=== PATIENT | male | born 1975 | race American Indian/Alaskan Native ===

== ENCOUNTER 2017-12-01 14:30 | Inpatient (IN) | payer BC, OTHER ==
[2017-12-01] MEDS ORDERED: Sodium Chloride 0.9% 10 ML Syringe FLUSH PRN (15:14)
[2017-12-01] MEDS ORDERED: Sodium Chloride 0.9% 2.5 ML Syringe FLUSH PRN (15:14)
--- NOTE | 2017-12-01 15:25 | EDM.PDOC ---
ED HPI GENERAL MEDICAL PROBLEM - General Chief Complaint: Abdominal Pain Stated Complaint: ABD PAIN Time Seen by Provider: 12/01/17 15:10 Source of Information: Reports: Patient History Limitations: Reports: No Limitations - History of Present Illness INITIAL COMMENTS - FREE TEXT/NARRATIVE: HISTORY AND PHYSICAL: []42-year-old male presents with abdominal pain just above his umbilicus to right lower quadrant History of Present Illness: []As been sick since Thursday this is the fifth day he has had diarrhea he had 2 bowel movements yesterday with diarrhea no bowel movement today 2Weeks ago due to patient was diagnosed with diabetes he has been on metformin for 2 weeks Review of Systems: As per history of present illness and below otherwise all systems reviewed and negative. Past medical history: As per history of present illness and as reviewed below otherwise noncontributory. Surgical history: As per history of present illness and as reviewed below otherwise noncontributory. Social history: No reported history of drug or alcohol abuse. Family history: As per history of present illness and as reviewed below otherwise noncontributory. Physical exam: Learning oriented male answering questions appropriately in full sentences without any shortness of breath he looks to be nontoxic. In is warm and dry HEENT: Atraumatic, normocehpalic, pupils reactive, negative for conjunctival pallor or scleral icterus, mucous membranes moist, throat clear, neck supple, nontender, trachea midline. PERRLA Lungs: Clear to auscultation, breath sounds equal bilaterally, chest non tender. Heart: S1S2, regular, negative for clicks, rubs, or JVD. Abdomen: Soft, nondistended, tender above the umbilicus there is a hernia and old scars are present. No rebound no guarding Negative for masses or hepatossplenmegaly. Negative for costovertebral tenderness. Pelvis: Stable nontender. Genitourinary: Deferred. Rectal: Deferred Extremities: Atraumatic, negative for cords or calf pain. Neurovascular unremarkable. Neuro: Awake, alert, oriented. Cranial nerves II through XII unremarkable. Cerebellum unremarkable. Motor and sensory unremarkable throughout. Exam nonfocal. Dr. Gregorio Alonso surgeon hydro excavation operator has been notified of the patient and he is here to examine him 17:55. Diagnostics: []CBC CMP amylase lipase abdomen pelvis CT Therapeutics: []Normal saline Impression: []Appendicitis Plan: []Refer to general surgery Definitive disposition and diagnosis as appropriate pending reevaluation and review of above. Onset: Gradual Duration: Day(s): (3) Location: Reports: Abdomen abdomen, back, R groin, Pain Score (Numeric/FACES): 8 - Related Data Allergies Allergy/AdvReac Type Severity Reaction Status Date / Time No Known Allergies Allergy Verified 12/01/17 14:54 Home Meds: Home Meds Ergocalciferol (Vitamin D2) [Vitamin D2] 1 tab PO WEEKLY 12/01/17 [History] Lisinopril 20 mg PO DAILY 12/01/17 [History] metFORMIN HCl [Metformin HCl] 1 tab PO BID 12/01/17 [History] Past Medical History Cardiovascular History: Reports: Hypertension Endocrine/Metabolic History: Reports: Diabetes, Type II - Past Surgical History GI Surgical History: Reports: Cholecystectomy Social & Family History - Family History Family Medical History: Noncontributory - Tobacco Use Smoking Status *Q: Current Every Day Smoker Years of Tobacco use: 5 Packs/Tins Daily: 0.1 - Recreational Drug Use Recreational Drug Use: No ED ROS GENERAL - Review of Systems Review Of Systems: ROS reveals no pertinent complaints other than HPI. ED EXAM, GI/ABD - Physical Exam Exam: See Below (See dictation) Course - Vital Signs Last Recorded V/S: Last Vital Signs Temp 37.0 C 12/03/17 08:00 Pulse 59 L 12/03/17 08:00 Resp 20 12/03/17 08:00 BP 126/65 12/03/17 08:10 Pulse Ox 93 L 12/03/17 08:00 - Orders/Labs/Meds Labs: Laboratory Tests 12/01/17 12/01/17 12/01/17 Range/Units 15:25 15:25 15:25 WBC 9.54 (4.0-11.0) K/uL RBC 5.38 (4.50-5.90) M/uL Hgb 15.4 (13.0-17.0) g/dL Hct 43.1 (38.0-50.0) % MCV 80.1 (80.0-98.0) fL MCH 28.6 (27.0-32.0) pg MCHC 35.7 (31.0-37.0) g/dL RDW Std Deviation 37.8 (28.0-62.0) fl RDW Coeff of Garry 13 (11.0-15.0) % Plt Count 170 (150-400) K/uL MPV 11.40 (7.40-12.00) fL Neut % (Auto) 78.5 (48.0-80.0) % Lymph % (Auto) 13.3 L (16.0-40.0) % Towns % (Auto) 7.2 (0.0-15.0) % Eos % (Auto) 0.8 (0.0-7.0) % Baso % (Auto) 0.2 (0.0-1.5) % Neut # (Auto) 7.5 H (1.4-5.7) K/uL Lymph # (Auto) 1.3 (0.6-2.4) K/uL [place] # (Auto) 0.7 (0.0-0.8) K/uL Eos # (Auto) 0.1 (0.0-0.7) K/uL Baso # (Auto) 0.0 (0.0-0.1) K/uL Nucleated RBC % 0.0 /100WBC Nucleated RBCs # 0 K/uL INR 1.00 Sodium 140 (136-148) mmol/L Potassium 3.9 (3.5-5.1) mmol/L Chloride 105 (98-107) mmol/L Carbon Dioxide 27.0 (21.0-32.0) mmol/L BUN 17 (7.0-18.0) mg/dL Creatinine 1.0 (0.8-1.3) mg/dL Est Cr Clr Drug Dosing 114.17 mL/min Estimated GFR (MDRD) > 60.0 ml/min Glucose 179 H (74-106) mg/dL Calcium 8.8 (8.5-10.1) mg/dL Total Bilirubin 0.9 (0.2-1.0) mg/dL AST 18 (15-37) IU/L ALT 47 (14-63) IU/L Alkaline Phosphatase 106 (46-116) U/L Troponin I < 0.050 (0.000-0.056) ng/mL B-Natriuretic Peptide (<100) PG/ML Total Protein 6.9 (6.4-8.2) g/dL Albumin 3.8 (3.4-5.0) g/dL Globulin 3.1 (2.0-3.5) g/dL Albumin/Globulin Ratio 1.2 L (1.3-2.8) Amylase 23 L (25-115) U/L Lipase 93 (73-393) U/L Urine Color Urine Appearance Urine pH (5.0-8.0) Ur Specific [place] (1.001-1.035) Urine Protein (NEGATIVE) mg/dL Urine Glucose (UA) (NEGATIVE) mg/dL Urine Ketones (NEGATIVE) mg/dL Urine Occult Blood (NEGATIVE) Urine Nitrite (NEGATIVE) Urine Bilirubin (NEGATIVE) Urine Urobilinogen (<2.0) EU/dL Ur Leukocyte Esterase (NEGATIVE) Urine RBC (0-2/HPF) Urine WBC (0-5/HPF) Ur Epithelial Cells (NONE-FEW) Urine Bacteria (NEGATIVE) H. pylori IgG Antibody (NEG) 12/01/17 12/01/17 12/01/17 Range/Units 15:25 15:25 16:54 WBC (4.0-11.0) K/uL RBC (4.50-5.90) M/uL Hgb (13.0-17.0) g/dL Hct (38.0-50.0) % MCV (80.0-98.0) fL MCH (27.0-32.0) pg MCHC (31.0-37.0) g/dL RDW Std Deviation (28.0-62.0) fl RDW Coeff of Garry (11.0-15.0) % Plt Count (150-400) K/uL MPV (7.40-12.00) fL Neut % (Auto) (48.0-80.0) % Lymph % (Auto) (16.0-40.0) % Towns % (Auto) (0.0-15.0) % Eos % (Auto) (0.0-7.0) % Baso % (Auto) (0.0-1.5) % Neut # (Auto) (1.4-5.7) K/uL Lymph # (Auto) (0.6-2.4) K/uL [place] # (Auto) (0.0-0.8) K/uL Eos # (Auto) (0.0-0.7) K/uL Baso # (Auto) (0.0-0.1) K/uL Nucleated RBC % /100WBC Nucleated RBCs # K/uL INR Sodium (136-148) mmol/L Potassium (3.5-5.1) mmol/L Chloride (98-107) mmol/L Carbon Dioxide (21.0-32.0) mmol/L BUN (7.0-18.0) mg/dL Creatinine (0.8-1.3) mg/dL Est Cr Clr Drug Dosing mL/min Estimated GFR (MDRD) ml/min Glucose (74-106) mg/dL Calcium (8.5-10.1) mg/dL Total Bilirubin (0.2-1.0) mg/dL AST (15-37) IU/L ALT (14-63) IU/L Alkaline Phosphatase (46-116) U/L Troponin I (0.000-0.056) ng/mL B-Natriuretic Peptide 18 (<100) PG/ML Total Protein (6.4-8.2) g/dL Albumin (3.4-5.0) g/dL Globulin (2.0-3.5) g/dL Albumin/Globulin Ratio (1.3-2.8) Amylase (25-115) U/L Lipase (73-393) U/L Urine Color YELLOW Urine Appearance CLEAR Urine pH 6.0 (5.0-8.0) Ur Specific [place] 1.015 (1.001-1.035) Urine Protein NEGATIVE (NEGATIVE) mg/dL Urine Glucose (UA) 250 H (NEGATIVE) mg/dL Urine Ketones NEGATIVE (NEGATIVE) mg/dL Urine Occult Blood NEGATIVE (NEGATIVE) Urine Nitrite NEGATIVE (NEGATIVE) Urine Bilirubin NEGATIVE (NEGATIVE) Urine Urobilinogen 0.2 (<2.0) EU/dL Ur Leukocyte Esterase NEGATIVE (NEGATIVE) Urine RBC 0-1 (0-2/HPF) Urine WBC 0-1 (0-5/HPF) Ur Epithelial Cells MODERATE (NONE-FEW) Urine Bacteria RARE (NEGATIVE) H. pylori IgG Antibody NEGATIVE (NEG) Meds: Medications Discontinued Medications Generic Name Dose Route Start Last Admin Trade Name Freq PRN Reason Stop Dose Admin Acetaminophen 325 mg 12/01/17 20:48 Tylenol PO Q4H PRN Fever Greater Than 101 Hydrocodone Bitart/Acetaminophen 1 - 2 tab 12/01/17 20:48 12/03/17 08:38 [place] 325-5 Mg PO 2 tab Q4H PRN Administration Pain (moderate 4-6) Bupivacaine HCl Confirm 12/01/17 18:17 Sensorcaine-Mpf 0.5% Administered 12/01/17 18:18 Dose 20 ml .ROUTE .STK-MED ONE Cefazolin Sodium Confirm 12/01/17 18:17 Ancef Administered 12/01/17 18:18 Dose 1 gm .ROUTE .STK-MED ONE Fentanyl Confirm 12/01/17 18:40 Sublimaze Administered 12/01/17 18:41 Dose 250 mcg .ROUTE .STK-MED ONE Fentanyl 50 mcg 12/01/17 19:57 Sublimaze IVPUSH .Q5MIN PRN Pain Glycopyrrolate Confirm 12/01/17 20:18 Robinul Administered 12/01/17 20:19 Dose 0.4 mg .ROUTE .STK-MED ONE Hydromorphone HCl Confirm 12/01/17 19:35 Dilaudid Administered 12/01/17 19:36 Dose 2 mg .ROUTE .STK-MED ONE Cefoxitin Sodium 2 gm/ Premix 50 mls @ 100 mls/hr 12/01/17 18:11 12/01/17 18: 21 IV 12/01/17 18:40 100 mls/hr ONETIME ONE Administration Lactated Ringer's 1,000 mls @ 150 mls/hr 12/01/17 18:15 12/01/17 18:20 Ringers, Lactated IV 150 mls/hr ASDIRECTED LAKISHA Administration Acetaminophen Confirm 12/01/17 18:44 Ofirmev Administered 12/01/17 18:45 Dose 100 mls @ as directed IV .STK-MED ONE Lactated Ringer's 1,000 mls @ 150 mls/hr 12/01/17 21:00 12/02/17 06:58 Ringers, Lactated IV 150 mls/hr ASDIRECTED LAKISHA Administration Cefoxitin Sodium 1 gm/ Premix 50 mls @ 100 mls/hr 12/02/17 00:01 12/03/17 06: 19 IV 12/03/17 18:30 100 mls/hr Q6H LAKISHA Administration Insulin Aspart 0 unit 12/02/17 22:46 12/03/17 07:39 Novolog SUBCUT Not Given [facility] Protocol Iopamidol 100 ml 12/01/17 17:46 12/01/17 17:47 Isovue Multipack-370 (76%) IVPUSH 12/01/17 17:47 100 ml ONETIME STA Administration Ketorolac Tromethamine Confirm 12/01/17 20:16 Toradol Administered 12/01/17 20:17 Dose 30 mg .ROUTE .STK-MED ONE Lidocaine Confirm 12/01/17 18:39 Xylocaine-Mpf 2% Administered 12/01/17 18:40 Dose 5 ml .ROUTE .STK-MED ONE Lisinopril 20 mg 12/02/17 09:00 12/03/17 08:10 Prinivil PO 20 mg DAILY LAKISHA Administration Metformin HCl 850 mg 12/02/17 08:00 12/02/17 09:31 Glucophage PO 850 mg BIDMEALS LAKISHA Administration Metformin HCl 850 mg 12/03/17 08:00 12/03/17 08:09 Glucophage PO 850 mg BIDMEALS LAKISHA Administration Midazolam HCl Confirm 12/01/17 18:40 Versed 1 Mg/Ml Administered 12/01/17 18:41 Dose 2 mg .ROUTE .STK-MED ONE Morphine Sulfate 2 mg 12/01/17 16:09 12/01/17 16:21 Morphine IVPUSH 12/01/17 16:10 2 mg ONETIME ONE Administration Morphine Sulfate 1 - 5 mg 12/01/17 20:48 12/02/17 19:57 Morphine IVPUSH 3 mg ASDIRECTED PRN Administration Pain (severe 7-10) Neostigmine Methylsulfate Confirm 12/01/17 20:18 Neostigmine Administered 12/01/17 20:19 Dose 5 mg .ROUTE .STK-MED ONE Ondansetron HCl 4 mg 12/01/17 16:09 12/01/17 16:19 Zofran IVPUSH 12/01/17 16:10 4 mg ONETIME ONE Administration Ondansetron HCl Confirm 12/01/17 18:39 Zofran Administered 12/01/17 18:40 Dose 4 mg .ROUTE .STK-MED ONE Ondansetron HCl 4 mg 12/01/17 20:48 Zofran IVPUSH Q6H PRN Nausea/Vomiting Propofol Confirm 12/01/17 18:40 Diprivan 20 Ml Administered 12/01/17 18:41 Dose 200 mg .ROUTE .STK-MED ONE Rocuronium [place] Confirm 12/01/17 18:39 Zemuron Administered 12/01/17 18:40 Dose 100 mg .ROUTE .STK-MED ONE Sodium Chloride 10 ml 12/01/17 15:14 12/01/17 16:20 Saline Flush FLUSH 10 ml ASDIRECTED PRN Administration Keep Vein Open Sodium Chloride 2.5 ml 12/01/17 15:14 12/01/17 16:20 Saline Flush FLUSH 2.5 ml ASDIRECTED PRN Administration Keep Vein Open Departure - Departure Time of Disposition: 19:00 Disposition: Admitted As Inpatient 68 Condition: Good Clinical Impression: Appendicitis Qualifiers: Appendicitis type: acute appendicitis Acute appendicitis type: unspecified acute appendicitis type Qualified Code(s): K35.80 - Unspecified acute appendicitis - Discharge Information
[2017-12-01 16:06] LABS: CHLORIDE,CL 105 mmol/L (98-107); SODIUM,NA 140 mmol/L (136-148)
[2017-12-01] MEDS ORDERED: Morphine 2 MG/ML Syringe IVPUSH ONE (16:09)
[2017-12-01] MEDS ORDERED: Ondansetron 4 MG/2 ML SDV IVPUSH ONE (16:09)
[2017-12-01] MEDS ORDERED: Iopamidol 755 MG/ML 500 ML Multipack Bottle IVPUSH STA (17:46)
[2017-12-01] MEDS ORDERED: cefOXitin 2 GM in Premix Bag 1 BAG IV ONE (18:11)
[2017-12-01] MEDS ORDERED: Lactated Ringers 1,000 ML IV SCH (18:15)
[2017-12-01] MEDS ORDERED: ceFAZolin 1 GM Vial ONE (18:17)
[2017-12-01] MEDS ORDERED: Bupivacaine 0.5% 10 ML SDV ONE (18:17)
--- NOTE | 2017-12-01 18:22 | PCM.HP ---
H&P History of Present Illness - General Date of Service: 12/01/17 Admit Problem/Dx: Abdominal pain. Source of Information: Patient, Family History Limitations: Reports: No Limitations - History of Present Illness Initial Comments - Free Text/Narative: Patient is a 42-year-old gentleman who developed abdominal pain this past . The pain is always been in the lower abdomen and to the right side. He did not seek medical attention until today. He says the pain has gotten progressively worse. He denies any nausea, vomiting, fever or chills. He did have a little bit to drink at noon but has basically had nothing to eat. Symptom Onset Date: 11/26/17 Duration of Symptoms: Reports: Day(s):, Getting Worse, Heavy Location: Reports: Abdomen Quality: Reports: Ache, Pressure Improves with: Reports: Rest Worsens with: Reports: Movement (Patient notes pain with ambulation. He also noted increased pain on the ride up if he hit a bump in the road.) Context: Reports: Sick Contact Associated Symptoms: Reports: Loss of Appetite abdomen, back, R groin, Pain Score (Numeric/FACES): 8 - Related Data Allergies/Adverse Reactions: Allergies Allergy/AdvReac Type Severity Reaction Status Date / Time No Known Allergies Allergy Verified 12/01/17 14:54 Home Medications: Home Meds Ergocalciferol (Vitamin D2) [Vitamin D2] 1 tab PO WEEKLY 12/01/17 [History] Lisinopril 20 mg PO DAILY 12/01/17 [History] metFORMIN HCl [Metformin HCl] 1 tab PO BID 12/01/17 [History] Past Medical History Cardiovascular History: Reports: Hypertension Endocrine/Metabolic History: Reports: Diabetes, Type II - Past Surgical History GI Surgical History: Reports: Cholecystectomy Social & Family History - Family History Family Medical History: Noncontributory - Tobacco Use Smoking Status *Q: Current Every Day Smoker Years of Tobacco use: 5 Packs/Tins Daily: 0.1 - Recreational Drug Use Recreational Drug Use: No H&P Review of Systems - Review of Systems: Review Of Systems: See Below General: Reports: Fatigue. Denies: Fever, Chills, Weight Loss HEENT: Reports: No Symptoms Pulmonary: Denies: Shortness of Breath, Wheezing Cardiovascular: Denies: Chest Pain, Palpitations Gastrointestinal: Reports: Abdominal Pain, Anorexia, Diarrhea (Recently started on metformin for diabetes.), Decreased Appetite, Flatus, Nausea. Denies: Constipation, Distension, Vomiting Genitourinary: Denies: Dysuria, Frequency, Burning Musculoskeletal: Reports: No Symptoms Skin: Reports: No Symptoms Psychiatric: Denies: Confusion, Depression, Mood Lability, Anxiety Neurological: Reports: No Symptoms Hematologic/Lymphatic: Reports: No Symptoms Immunologic: Reports: No Symptoms Exam - Exam Exam: See Below - Vital Signs Vital Signs: Last Vital Signs Temp 97.5 F 12/01/17 14:51 Pulse 67 12/01/17 14:51 Resp 18 12/01/17 14:51 BP 155/74 H 12/01/17 14:51 Pulse Ox 97 12/01/17 14:51 Weight: 280 lb - Exam General: Alert, Oriented, Moderate Distress HEENT: Conjunctiva Clear, EACs Clear, Nares Patent, Pupils Equal, Pupils Reactive. No: Scleral Icterus Neck: Supple, Trachea Midline Lungs: Clear to Auscultation, Normal Respiratory Effort Cardiovascular: Regular Rate, Regular Rhythm, Normal S1, Normal S2. No: Tachycardia GI/Abdominal Exam: Normal Bowel Sounds, Soft, Pelvis Stable, Guarding, Rebound, Tender, Hernia (Midline incision with hernias on both sides. This is an upper midline incision.). No: No Distention, No Mass, Distended, Rigid (Male) Exam: No Hernia Rectal (Males) Exam: Deferred Back Exam: Normal Inspection Extremities: Normal Inspection, Normal Range of Motion, No Pedal Edema. No: Edmund's Sign Peripheral Pulses: 4+: Posterior Tibial (L), Posterior Tibial (R), Dorsalis Pedis (L), Dorsalis Pedis (R) Skin: Warm, Dry, Intact Neurological: Cranial Nerves Intact Neuro Extensive - Mental Status: Alert, Oriented x3, Normal Mood/Affect Psychiatric: Alert, Normal Affect, Normal Mood - Patient Data Lab Results Last 24 hrs: Laboratory Results - last 24 hr 12/01/17 12/01/17 12/01/17 Range/Units 15:25 15:25 15:25 WBC 9.54 (4.0-11.0) K/uL RBC 5.38 (4.50-5.90) M/uL Hgb 15.4 (13.0-17.0) g/dL Hct 43.1 (38.0-50.0) % MCV 80.1 (80.0-98.0) fL MCH 28.6 (27.0-32.0) pg MCHC 35.7 (31.0-37.0) g/dL RDW Std Deviation 37.8 (28.0-62.0) fl RDW Coeff of Garry 13 (11.0-15.0) % Plt Count 170 (150-400) K/uL MPV 11.40 (7.40-12.00) fL Neut % (Auto) 78.5 (48.0-80.0) % Lymph % (Auto) 13.3 L (16.0-40.0) % [place] % (Auto) 7.2 (0.0-15.0) % Eos % (Auto) 0.8 (0.0-7.0) % Baso % (Auto) 0.2 (0.0-1.5) % Neut # (Auto) 7.5 H (1.4-5.7) K/uL Lymph # (Auto) 1.3 (0.6-2.4) K/uL [place] # (Auto) 0.7 (0.0-0.8) K/uL Eos # (Auto) 0.1 (0.0-0.7) K/uL Baso # (Auto) 0.0 (0.0-0.1) K/uL Nucleated RBC % 0.0 /100WBC Nucleated RBCs # 0 K/uL INR 1.00 Sodium 140 (136-148) mmol/L Potassium 3.9 (3.5-5.1) mmol/L Chloride 105 (98-107) mmol/L Carbon Dioxide 27.0 (21.0-32.0) mmol/L BUN 17 (7.0-18.0) mg/dL Creatinine 1.0 (0.8-1.3) mg/dL Est Cr Clr Drug Dosing 114.17 mL/min Estimated GFR (MDRD) > 60.0 ml/min Glucose 179 H (74-106) mg/dL Calcium 8.8 (8.5-10.1) mg/dL Total Bilirubin 0.9 (0.2-1.0) mg/dL AST 18 (15-37) IU/L ALT 47 (14-63) IU/L Alkaline Phosphatase 106 (46-116) U/L Troponin I < 0.050 (0.000-0.056) ng/mL B-Natriuretic Peptide (<100) PG/ML Total Protein 6.9 (6.4-8.2) g/dL Albumin 3.8 (3.4-5.0) g/dL Globulin 3.1 (2.0-3.5) g/dL Albumin/Globulin Ratio 1.2 L (1.3-2.8) Amylase 23 L (25-115) U/L Lipase 93 (73-393) U/L Urine Color Urine Appearance Urine pH (5.0-8.0) Ur Specific [place] (1.001-1.035) Urine Protein (NEGATIVE) mg/dL Urine Glucose (UA) (NEGATIVE) mg/dL Urine Ketones (NEGATIVE) mg/dL Urine Occult Blood (NEGATIVE) Urine Nitrite (NEGATIVE) Urine Bilirubin (NEGATIVE) Urine Urobilinogen (<2.0) EU/dL Ur Leukocyte Esterase (NEGATIVE) Urine RBC (0-2/HPF) Urine WBC (0-5/HPF) Ur Epithelial Cells (NONE-FEW) Urine Bacteria (NEGATIVE) H. pylori IgG Antibody (NEG) 12/01/17 12/01/17 12/01/17 Range/Units 15:25 15:25 16:54 WBC (4.0-11.0) K/uL RBC (4.50-5.90) M/uL Hgb (13.0-17.0) g/dL Hct (38.0-50.0) % MCV (80.0-98.0) fL MCH (27.0-32.0) pg MCHC (31.0-37.0) g/dL RDW Std Deviation (28.0-62.0) fl RDW Coeff of Garry (11.0-15.0) % Plt Count (150-400) K/uL MPV (7.40-12.00) fL Neut % (Auto) (48.0-80.0) % Lymph % (Auto) (16.0-40.0) % [place] % (Auto) (0.0-15.0) % Eos % (Auto) (0.0-7.0) % Baso % (Auto) (0.0-1.5) % Neut # (Auto) (1.4-5.7) K/uL Lymph # (Auto) (0.6-2.4) K/uL [place] # (Auto) (0.0-0.8) K/uL Eos # (Auto) (0.0-0.7) K/uL Baso # (Auto) (0.0-0.1) K/uL Nucleated RBC % /100WBC Nucleated RBCs # K/uL INR Sodium (136-148) mmol/L Potassium (3.5-5.1) mmol/L Chloride (98-107) mmol/L Carbon Dioxide (21.0-32.0) mmol/L BUN (7.0-18.0) mg/dL Creatinine (0.8-1.3) mg/dL Est Cr Clr Drug Dosing mL/min Estimated GFR (MDRD) ml/min Glucose (74-106) mg/dL Calcium (8.5-10.1) mg/dL Total Bilirubin (0.2-1.0) mg/dL AST (15-37) IU/L ALT (14-63) IU/L Alkaline Phosphatase (46-116) U/L Troponin I (0.000-0.056) ng/mL B-Natriuretic Peptide 18 (<100) PG/ML Total Protein (6.4-8.2) g/dL Albumin (3.4-5.0) g/dL Globulin (2.0-3.5) g/dL Albumin/Globulin Ratio (1.3-2.8) Amylase (25-115) U/L Lipase (73-393) U/L Urine Color YELLOW Urine Appearance CLEAR Urine pH 6.0 (5.0-8.0) Ur Specific [place] 1.015 (1.001-1.035) Urine Protein NEGATIVE (NEGATIVE) mg/dL Urine Glucose (UA) 250 H (NEGATIVE) mg/dL Urine Ketones NEGATIVE (NEGATIVE) mg/dL Urine Occult Blood NEGATIVE (NEGATIVE) Urine Nitrite NEGATIVE (NEGATIVE) Urine Bilirubin NEGATIVE (NEGATIVE) Urine Urobilinogen 0.2 (<2.0) EU/dL Ur Leukocyte Esterase NEGATIVE (NEGATIVE) Urine RBC 0-1 (0-2/HPF) Urine WBC 0-1 (0-5/HPF) Ur Epithelial Cells MODERATE (NONE-FEW) Urine Bacteria RARE (NEGATIVE) H. pylori IgG Antibody NEGATIVE (NEG) Result Diagrams: 12/01/17 15:25 12/01/17 15:25 - Problem List (1) Acute abdominal pain in right lower quadrant SNOMED Code(s): 689083023, 565767606 ICD Code: R10.31 - RIGHT LOWER QUADRANT PAIN Status: Acute Priority: High Current Visit: Yes (2) Obesity (BMI 30-39.9) SNOMED Code(s): 508228108, 954313082 ICD Code: E66.9 - OBESITY, UNSPECIFIED Status: Acute Priority: Medium Current Visit: Yes (3) Diabetes mellitus SNOMED Code(s): 03483916 ICD Code: E11.9 - TYPE 2 DIABETES MELLITUS WITHOUT COMPLICATIONS Status: Acute Priority: Medium Current Visit: Yes Qualifiers: Diabetes mellitus type: type 2 (4) Appendicitis SNOMED Code(s): 95965119 ICD Code: K37 - UNSPECIFIED APPENDICITIS Status: Acute Priority: High Current Visit: Yes Qualifiers: Appendicitis type: acute appendicitis Acute appendicitis type: unspecified acute appendicitis type Qualified Code(s): K35.80 - Unspecified acute appendicitis Problem List Initiated/Reviewed/Updated: Yes Orders Last 24hrs: Active Orders 24 hr Category Date Time Status EKG Documentation Completion [RC] STAT Care 12/01/17 15:14 Active Oxygen Therapy [RC] PRN Care 12/01/17 18:16 Ordered Pulse Oximetry [RC] INTERMITTENT Care 12/01/17 18:16 Ordered Skin Preparation [RC] .PREOP Care 12/01/17 18:16 Ordered Vital Signs [RC] PER UNIT ROUTINE Care 12/01/17 18:16 Ordered Nothing Per Oral Diet [DIET] Diet 12/01/17 Dinner Ordered Abdomen Pelvis w Cont [CT] Stat Exams 12/01/17 15:15 Taken Chest 2V [CR] Stat Exams 12/01/17 15:15 Taken UA W/MICROSCOPIC [URIN] Stat Lab 12/01/17 16:54 Ordered Lactated Ringers [Ringers, Lactated] 1,000 ml Med 12/01/17 18:15 Active IV ASDIRECTED Sodium Chloride 0.9% [Saline Flush] Med 12/01/17 15:14 Active 10 ml FLUSH ASDIRECTED PRN Sodium Chloride 0.9% [Saline Flush] Med 12/01/17 15:14 Active 2.5 ml FLUSH ASDIRECTED PRN cefOXitin [Mefoxin in Dextrose,Iso-Osm 2 GM/50 ML] 2 gm Med 12/01/17 18:11 Active Premix Bag 1 bag IV ONETIME Antiembolic Hose [OM.PC] PER UNIT ROUTINE Oth 12/01/17 06:00 Ordered Antiembolic Hose [OM.PC] PER UNIT ROUTINE Oth 12/02/17 06:00 Ordered Saline Lock Insert [OM.PC] Stat Oth 12/01/17 15:14 Ordered Sequential Compression Device [OM.PC] Routine Oth 12/01/17 18:16 Ordered Resuscitation Status Routine Resus Stat 12/01/17 18:16 Ordered Medication Orders Cefoxitin Sodium 2 gm/ Premix 50 mls @ 100 mls/hr IV ONETIME ONE Stop: 12/01/17 18:40 Lactated Ringer's (Ringers, Lactated) 1,000 mls @ 150 mls/hr IV ASDIRECTED LAKISHA Sodium Chloride (Saline Flush) 10 ml FLUSH ASDIRECTED PRN PRN Reason: Keep Vein Open Last Admin: 12/01/17 16:20 Dose: 10 ml Sodium Chloride (Saline Flush) 2.5 ml FLUSH ASDIRECTED PRN PRN Reason: Keep Vein Open Last Admin: 12/01/17 16:20 Dose: 2.5 ml Assessment/Plan Comment:: Open appendectomy. Given his upper midline incision with hernias on both sides of the midline in the upper abdomen. I do not feel it is safe to proceed with a laparoscopic approach. The operative procedure, along with the risks, including, but not limited to, bleeding, infection, pneumonia, deep venous thrombosis, pulmonary emboli, myocardial infarction, and adjacent organ injury have been reviewed with the patient who voices understanding, offers no questions and agrees to proceed.
--- NOTE | 2017-12-01 18:35 | PCM.PREANE ---
Preanesthetic Assessment - Procedure Proposed Procedure: Open Appy - Anesthesia/Transfusion/Family Hx Anesthesia History: Prior Anesthesia Without Reaction Family History of Anesthesia Reaction: No Transfusion History: No Prior Transfusion(s) Intubation History: Unknown - Review of Systems General: Fatigue, Malaise, Other (Pain started last and progressively worsened - states he finally couldn't take it at work this afternoon - denies fever/nausea) Pulmonary: No Symptoms Cardiovascular: No Symptoms Gastrointestinal: No Symptoms Neurological: No Symptoms - Physical Assessment O2 Sat by Pulse Oximetry: 97 Respiratory Rate: 18 Vital Signs: Last Vital Signs Temp 97.5 F 12/01/17 14:51 Pulse 67 12/01/17 14:51 Resp 18 12/01/17 14:51 BP 155/74 H 12/01/17 14:51 Pulse Ox 97 12/01/17 14:51 Height: 6 ft 2 in Weight: 280 lb ASA Class: 3E Mental Status: Alert & Oriented x3 Airway Class: Mallampati = 2 Dentition: Reports: Broken Tooth/Teeth (upper L front tooth is prominent - warned that damage could occur - pt verbalizes understanding) Thyro-Mental Finger Breadths: 3 Mouth Opening Finger Breadths: 3 ROM/Head Extension: Full Lungs: Clear to Auscultation, Normal Respiratory Effort Cardiovascular: Regular Rate, Regular Rhythm - Lab Values: Laboratory Last Values WBC 9.54 K/uL (4.0-11.0) 12/01/17 15:25 RBC 5.38 M/uL (4.50-5.90) 12/01/17 15:25 Hgb 15.4 g/dL (13.0-17.0) 12/01/17 15:25 Hct 43.1 % (38.0-50.0) 12/01/17 15:25 MCV 80.1 fL (80.0-98.0) 12/01/17 15:25 MCH 28.6 pg (27.0-32.0) 12/01/17 15:25 MCHC 35.7 g/dL (31.0-37.0) 12/01/17 15:25 RDW Std Deviation 37.8 fl (28.0-62.0) 12/01/17 15:25 RDW Coeff of Garry 13 % (11.0-15.0) 12/01/17 15:25 Plt Count 170 K/uL (150-400) 12/01/17 15:25 MPV 11.40 fL (7.40-12.00) 12/01/17 15:25 Neut % (Auto) 78.5 % (48.0-80.0) 12/01/17 15:25 Lymph % (Auto) 13.3 % (16.0-40.0) L 12/01/17 15:25 Edmunds % (Auto) 7.2 % (0.0-15.0) 12/01/17 15:25 Eos % (Auto) 0.8 % (0.0-7.0) 12/01/17 15:25 Baso % (Auto) 0.2 % (0.0-1.5) 12/01/17 15:25 Neut # (Auto) 7.5 K/uL (1.4-5.7) H 12/01/17 15:25 Lymph # (Auto) 1.3 K/uL (0.6-2.4) 12/01/17 15:25 Edmunds # (Auto) 0.7 K/uL (0.0-0.8) 12/01/17 15:25 Eos # (Auto) 0.1 K/uL (0.0-0.7) 12/01/17 15:25 Baso # (Auto) 0.0 K/uL (0.0-0.1) 12/01/17 15:25 Nucleated RBC % 0.0 /100WBC 12/01/17 15:25 Nucleated RBCs # 0 K/uL 12/01/17 15:25 INR 1.00 12/01/17 15:25 Sodium 140 mmol/L (136-148) 12/01/17 15:25 Potassium 3.9 mmol/L (3.5-5.1) 12/01/17 15:25 Chloride 105 mmol/L (98-107) 12/01/17 15:25 Carbon Dioxide 27.0 mmol/L (21.0-32.0) 12/01/17 15:25 BUN 17 mg/dL (7.0-18.0) 12/01/17 15:25 Creatinine 1.0 mg/dL (0.8-1.3) 12/01/17 15:25 Est Cr Clr Drug Dosing 114.17 mL/min 12/01/17 15:25 Estimated GFR (MDRD) > 60.0 ml/min 12/01/17 15:25 Glucose 179 mg/dL (74-106) H 12/01/17 15:25 Calcium 8.8 mg/dL (8.5-10.1) 12/01/17 15:25 Total Bilirubin 0.9 mg/dL (0.2-1.0) 12/01/17 15:25 AST 18 IU/L (15-37) 12/01/17 15:25 ALT 47 IU/L (14-63) 12/01/17 15:25 Alkaline Phosphatase 106 U/L (46-116) 12/01/17 15:25 Troponin I < 0.050 ng/mL (0.000-0.056) 12/01/17 15:25 B-Natriuretic Peptide 18 PG/ML (<100) 12/01/17 15:25 Total Protein 6.9 g/dL (6.4-8.2) 12/01/17 15:25 Albumin 3.8 g/dL (3.4-5.0) 12/01/17 15:25 Globulin 3.1 g/dL (2.0-3.5) 12/01/17 15:25 Albumin/Globulin Ratio 1.2 (1.3-2.8) L 12/01/17 15:25 Amylase 23 U/L (25-115) L 12/01/17 15:25 Lipase 93 U/L (73-393) 12/01/17 15:25 Urine Color YELLOW 12/01/17 16:54 Urine Appearance CLEAR 12/01/17 16:54 Urine pH 6.0 (5.0-8.0) 12/01/17 16:54 Ur Specific [place] 1.015 (1.001-1.035) 12/01/17 16:54 Urine Protein NEGATIVE mg/dL (NEGATIVE) 12/01/17 16:54 Urine Glucose (UA) 250 mg/dL (NEGATIVE) H 12/01/17 16:54 Urine Ketones NEGATIVE mg/dL (NEGATIVE) 12/01/17 16:54 Urine Occult Blood NEGATIVE (NEGATIVE) 12/01/17 16:54 Urine Nitrite NEGATIVE (NEGATIVE) 12/01/17 16:54 Urine Bilirubin NEGATIVE (NEGATIVE) 12/01/17 16:54 Urine Urobilinogen 0.2 EU/dL (<2.0) 12/01/17 16:54 Ur Leukocyte Esterase NEGATIVE (NEGATIVE) 12/01/17 16:54 Urine RBC 0-1 (0-2/HPF) 12/01/17 16:54 Urine WBC 0-1 (0-5/HPF) 12/01/17 16:54 Ur Epithelial Cells MODERATE (NONE-FEW) 12/01/17 16:54 Urine Bacteria RARE (NEGATIVE) 12/01/17 16:54 H. pylori IgG Antibody NEGATIVE (NEG) 12/01/17 15:25 - Allergies Allergies/Adverse Reactions: Allergies Allergy/AdvReac Type Severity Reaction Status Date / Time No Known Allergies Allergy Verified 12/01/17 14:54 - Blood Blood Available: No Product(s) Available: None - Anesthesia Plan Free Text/Narrative:: GETA Pre-Op Medication Ordered: None - Acknowledgements Anesthesia Type Planned: General Anesthesia Pt an Appropriate Candidate for the Planned Anesthesia: Yes Alternatives and Risks of Anesthesia Discussed w Pt/Guardian: Yes Pt/Guardian Understands and Agrees with Anesthesia Plan: Yes PreAnesthesia Questionnaire Cardiovascular History: Reports: Hypertension (started Lisinopril approx 1 week ago, but quit taking last ) Endocrine/Metabolic History: Reports: Diabetes, Type II (started metformin approx 1 week ago), Obesity/BMI 30+ - Past Surgical History GI Surgical History: Reports: Cholecystectomy - SUBSTANCE USE Smoking Status *Q: Current Every Day Smoker (approx 1 pack/week) Tobacco Use Within Last Twelve Months: Cigars Recreational Drug Use History: No - HOME MEDS Home Medications: Home Meds Ergocalciferol (Vitamin D2) [Vitamin D2] 1 tab PO WEEKLY 12/01/17 [History] Lisinopril 20 mg PO DAILY 12/01/17 [History] metFORMIN HCl [Metformin HCl] 1 tab PO BID 12/01/17 [History] - CURRENT (IN HOUSE) MEDS Current Meds: Current Medications Cefoxitin Sodium 2 gm/ Premix 50 mls @ 100 mls/hr IV ONETIME ONE Stop: 12/01/17 18:40 Last Admin: 12/01/17 18:21 Dose: 100 mls/hr Lactated Ringer's (Ringers, Lactated) 1,000 mls @ 150 mls/hr IV ASDIRECTED [facility] Last Admin: 12/01/17 18:20 Dose: 150 mls/hr Sodium Chloride (Saline Flush) 10 ml FLUSH ASDIRECTED PRN PRN Reason: Keep Vein Open Last Admin: 12/01/17 16:20 Dose: 10 ml Sodium Chloride (Saline Flush) 2.5 ml FLUSH ASDIRECTED PRN PRN Reason: Keep Vein Open Last Admin: 12/01/17 16:20 Dose: 2.5 ml Discontinued Medications Bupivacaine HCl (Sensorcaine-Mpf 0.5%) Confirm Administered Dose 20 ml .ROUTE .STK-MED ONE Stop: 12/01/17 18:18 Cefazolin Sodium (Ancef) Confirm Administered Dose 1 gm .ROUTE .STK-MED ONE Stop: 12/01/17 18:18 Iopamidol (Isovue Multipack-370 (76%)) 100 ml IVPUSH ONETIME STA Stop: 12/01/17 17:47 Last Admin: 12/01/17 17:47 Dose: 100 ml Morphine Sulfate (Morphine) 2 mg IVPUSH ONETIME ONE Stop: 12/01/17 16:10 Last Admin: 12/01/17 16:21 Dose: 2 mg Ondansetron HCl (Zofran) 4 mg IVPUSH ONETIME ONE Stop: 12/01/17 16:10 Last Admin: 12/01/17 16:19 Dose: 4 mg
[2017-12-01] MEDS ORDERED: Lidocaine 2% 5 ML SDV ONE (18:39)
[2017-12-01] MEDS ORDERED: Rocuronium 10 MG/ML 10 ML Syringe ONE (18:39)
[2017-12-01] MEDS ORDERED: Ondansetron 4 MG/2 ML SDV ONE (18:39)
[2017-12-01] MEDS ORDERED: Midazolam 1 MG/ML 2 ML SDV ONE (18:40)
[2017-12-01] MEDS ORDERED: Propofol 200 MG/20 ML SDV ONE (18:40)
[2017-12-01] MEDS ORDERED: fentaNYL 250 MCG/5 ML SDV ONE (18:40)
[2017-12-01] MEDS ORDERED: HYDROmorphone 2 MG/ML SDV ONE (19:35)
[2017-12-01] MEDS ORDERED: fentaNYL 100 MCG/2 ML SDV IVPUSH PRN (19:57)
[2017-12-01] MEDS ORDERED: Ketorolac 30 MG/ML SDV ONE (20:16)
[2017-12-01] MEDS ORDERED: Neostigmine Methylsulfate 1 MG/ML 5 ML Syringe ONE (20:18)
[2017-12-01] MEDS ORDERED: Glycopyrrolate 0.2 MG/ML SDV ONE (20:18)
[2017-12-01] MEDS ORDERED: Acetaminophen 325 MG Tab PO PRN (20:48)
[2017-12-01] MEDS ORDERED: Ondansetron 4 MG/2 ML SDV IVPUSH PRN (20:48)
--- NOTE | 2017-12-01 20:58 | PCM.OPNOTE ---
- General Post-Op/Procedure Note Date of Surgery/Procedure: 12/01/17 Operative Procedure(s): Open appendectomy Pre Op Diagnosis: Acute abdomen Post-Op Diagnosis: Acute appendicitis with localized peritonitis Anesthesia Technique: General ET Tube (ASA IIIE) Primary Surgeon: Gregorio Alonso Wood Car Builder: Veena Gamboa Reason Wood Car Builder Was Necessary: Obesity, multiple incisional hernias Role of Wood Car Builder: Retraction, exposure Fluid Replacement, Intraop: 2,000 EBL in mLs: 20 Condition: Fair Free Text/Narrative:: Dictation [id number] CPT CODE 07160
--- NOTE | 2017-12-01 21:59 | PCM.POSTAN ---
POST ANESTHESIA ASSESSMENT - MENTAL STATUS Mental Status: Alert, Oriented - RESPIRATORY Respiratory Status: Respiratory Rate WNL, Airway Patent, O2 Saturation Stable - CARDIOVASCULAR CV Status: Pulse Rate WNL, Blood Pressure Stable - GASTROINTESTINAL GI Status: No Symptoms - PAIN Pain Score: 0 (stated much better than preop) - POST OP HYDRATION Hydration Status: Adequate & Stable - OBSERVATIONS Free Text/Narrative:: discharged to 222.
[2017-12-01] MEDS: Lactated Ringers 1,000 ML IV SCH (22:14)
[2017-12-01] MEDS: cefOXitin 1 GM in Premix Bag 1 BAG IV SCH (23:54)
--- NOTE | 2017-12-02 00:14 | OR ---
SURGEON: Gregorio Alonso M.D. DATE OF PROCEDURE: 12/01/2017 OPERATION PERFORMED: Open appendectomy. STEAMTABLE ATTENDANT RAILROAD: Veena Gamboa MD ANESTHESIA: General endotracheal. ASA CLASSIFICATION: IIIE. PREOPERATIVE DIAGNOSIS: Acute abdomen. POSTOPERATIVE DIAGNOSIS: Acute appendicitis without perforation or abscess. DESCRIPTION OF PROCEDURE: The patient was taken to the operating room and placed on the operating table in the supine position. Time-out was called for appropriate identification of the patient and procedure. Thigh-high TEDs and sequential compression boots were placed. Following satisfactory attainment of general endotracheal anesthesia, the abdomen was prepped with DuraPrep solution, and sterile drapes were applied. The skin incision was made in the right lower quadrant and deepened through the subcutaneous tissue using electrocautery. Dissection was carried down to the external oblique fascia, which was incised, and muscle-splitting incision was used. The peritoneum was grasped between hemostats and incised. Small bowel was immediately present in the right lower quadrant. It should be noted this gentleman had 2 large ventral hernias, one to the left of the midline and one to the right. We were able to retract the small bowel out of the way and eventually identify the cecum and trace it down to the base, where we delivered an acutely inflamed appendicitis that was gangrenous in the midportion, but had not ruptured, and there was no foul odor nor any purulence present within the peritoneal cavity. The mesoappendix was taken down with a Harmonic scalpel. Because of the length of the appendix, it was elected to initially divide this with a TA-60 stapler. Once the stapler was fired and the appendix amputated, it was apparent that there was still a significant length of appendix remaining behind. Therefore, a second application of a TA-30 stapler was used, and this was able to get to the base of the cecum and remove the remainder of the appendix. The wound was then inspected for hemostasis. No bleeding was noted. The right lower quadrant was copiously irrigated with 1% Ancef solution. That fluid was aspirated. The peritoneum was then grasped with hemostats and closed with running 0 Vicryl. Muscle layers were anatomically reapproximated with interrupted 0 Vicryl. Subcutaneous tissue was again irrigated with sterile saline solution and closed with interrupted 3-0 Vicryl. The skin edges were reapproximated with skin clips. 10 ml of 0.5% Marcaine was injected around the incision. Sterile Tegaderm pad was placed as a dressing. Sponge, needle, and instrument counts were all correct. The patient tolerated the procedure well. Following emergence from anesthesia and extubation, he was taken to recovery room in stable condition. ESTIMATED BLOOD LOSS: 20 mL. INTRAOPERATIVE FLUID REPLACEMENT: 2000 mL of crystalloid. WILY / JOSE /[id number] MTDD
[2017-12-02] MEDS: Lactated Ringers 1,000 ML IV SCH ×2 (01:00→06:58)
[2017-12-02] MEDS: Acetaminophen/HYDROcodone 325-5 MG Tab PO PRN ×4 (05:47→19:58)
[2017-12-02] MEDS: cefOXitin 1 GM in Premix Bag 1 BAG IV SCH ×4 (05:49→23:29)
[2017-12-02 06:36] LABS: CHLORIDE,CL 104 mmol/L (98-107); SODIUM,NA 138 mmol/L (136-148)
[2017-12-02] MEDS: Lisinopril 10 MG Tab PO SCH (09:30)
--- NOTE | 2017-12-02 11:27 | PCM.SURGPN ---
- General Info Date of Service: 12/02/17 POD#: 1 Post-Op Diagnosis: Acute appendicitis Functional Status: Reports: Pain Controlled, Tolerating Diet, Ambulating - Review of Systems General: Reports: Appetite. Denies: Fever, Weakness, Fatigue HEENT: Reports: No Symptoms Pulmonary: Denies: Shortness of Breath, Cough Cardiovascular: Denies: Chest Pain Gastrointestinal: Reports: Abdominal Pain (Incisional), Flatus. Denies: Constipation, Diarrhea, Difficulty Swallowing, Hematochezia, Melena, Nausea, Vomiting Genitourinary: Denies: Dysuria, Frequency, Burning, Pain, Urgency Musculoskeletal: Reports: No Symptoms Skin: Denies: Cyanosis, Jaundice Neurological: Denies: Confusion, Dizziness, Headache Psychiatric: Reports: No Symptoms - Patient Data Vitals - Most Recent: Last Vital Signs Temp 97.6 F 12/02/17 08:00 Pulse 65 12/02/17 08:00 Resp 16 12/02/17 08:00 BP 116/59 L 12/02/17 09:30 Pulse Ox 94 L 12/02/17 08:00 Weight - Most Recent: 280 lb I&O - Last 24 Hours: Intake & Output 12/01/17 12/02/17 12/02/17 19:59 03:59 11:59 Intake Total 5046 50 Balance 5046 50 Lab Results Last 24 Hrs: Laboratory Results - last 24 hr 12/01/17 12/01/17 12/01/17 Range/Units 15:25 15:25 15:25 WBC 9.54 (4.0-11.0) K/uL RBC 5.38 (4.50-5.90) M/uL Hgb 15.4 (13.0-17.0) g/dL Hct 43.1 (38.0-50.0) % MCV 80.1 (80.0-98.0) fL MCH 28.6 (27.0-32.0) pg MCHC 35.7 (31.0-37.0) g/dL RDW Std Deviation 37.8 (28.0-62.0) fl RDW Coeff of Garry 13 (11.0-15.0) % Plt Count 170 (150-400) K/uL MPV 11.40 (7.40-12.00) fL Neut % (Auto) 78.5 (48.0-80.0) % Lymph % (Auto) 13.3 L (16.0-40.0) % [place] % (Auto) 7.2 (0.0-15.0) % Eos % (Auto) 0.8 (0.0-7.0) % Baso % (Auto) 0.2 (0.0-1.5) % Neut # (Auto) 7.5 H (1.4-5.7) K/uL Lymph # (Auto) 1.3 (0.6-2.4) K/uL [place] # (Auto) 0.7 (0.0-0.8) K/uL Eos # (Auto) 0.1 (0.0-0.7) K/uL Baso # (Auto) 0.0 (0.0-0.1) K/uL Nucleated RBC % 0.0 /100WBC Nucleated RBCs # 0 K/uL INR 1.00 Sodium 140 (136-148) mmol/L Potassium 3.9 (3.5-5.1) mmol/L Chloride 105 (98-107) mmol/L Carbon Dioxide 27.0 (21.0-32.0) mmol/L BUN 17 (7.0-18.0) mg/dL Creatinine 1.0 (0.8-1.3) mg/dL Est Cr Clr Drug Dosing 114.17 mL/min Estimated GFR (MDRD) > 60.0 ml/min Glucose 179 H (74-106) mg/dL POC Glucose (60-110) mg/dL Calcium 8.8 (8.5-10.1) mg/dL Total Bilirubin 0.9 (0.2-1.0) mg/dL AST 18 (15-37) IU/L ALT 47 (14-63) IU/L Alkaline Phosphatase 106 (46-116) U/L Troponin I < 0.050 (0.000-0.056) ng/mL B-Natriuretic Peptide (<100) PG/ML Total Protein 6.9 (6.4-8.2) g/dL Albumin 3.8 (3.4-5.0) g/dL Globulin 3.1 (2.0-3.5) g/dL Albumin/Globulin Ratio 1.2 L (1.3-2.8) Amylase 23 L (25-115) U/L Lipase 93 (73-393) U/L Urine Color Urine Appearance Urine pH (5.0-8.0) Ur Specific [place] (1.001-1.035) Urine Protein (NEGATIVE) mg/dL Urine Glucose (UA) (NEGATIVE) mg/dL Urine Ketones (NEGATIVE) mg/dL Urine Occult Blood (NEGATIVE) Urine Nitrite (NEGATIVE) Urine Bilirubin (NEGATIVE) Urine Urobilinogen (<2.0) EU/dL Ur Leukocyte Esterase (NEGATIVE) Urine RBC (0-2/HPF) Urine WBC (0-5/HPF) Ur Epithelial Cells (NONE-FEW) Urine Bacteria (NEGATIVE) H. pylori IgG Antibody (NEG) 12/01/17 12/01/17 12/01/17 Range/Units 15:25 15:25 16:54 WBC (4.0-11.0) K/uL RBC (4.50-5.90) M/uL Hgb (13.0-17.0) g/dL Hct (38.0-50.0) % MCV (80.0-98.0) fL MCH (27.0-32.0) pg MCHC (31.0-37.0) g/dL RDW Std Deviation (28.0-62.0) fl RDW Coeff of Garry (11.0-15.0) % Plt Count (150-400) K/uL MPV (7.40-12.00) fL Neut % (Auto) (48.0-80.0) % Lymph % (Auto) (16.0-40.0) % [place] % (Auto) (0.0-15.0) % Eos % (Auto) (0.0-7.0) % Baso % (Auto) (0.0-1.5) % Neut # (Auto) (1.4-5.7) K/uL Lymph # (Auto) (0.6-2.4) K/uL [place] # (Auto) (0.0-0.8) K/uL Eos # (Auto) (0.0-0.7) K/uL Baso # (Auto) (0.0-0.1) K/uL Nucleated RBC % /100WBC Nucleated RBCs # K/uL INR Sodium (136-148) mmol/L Potassium (3.5-5.1) mmol/L Chloride (98-107) mmol/L Carbon Dioxide (21.0-32.0) mmol/L BUN (7.0-18.0) mg/dL Creatinine (0.8-1.3) mg/dL Est Cr Clr Drug Dosing mL/min Estimated GFR (MDRD) ml/min Glucose (74-106) mg/dL POC Glucose (60-110) mg/dL Calcium (8.5-10.1) mg/dL Total Bilirubin (0.2-1.0) mg/dL AST (15-37) IU/L ALT (14-63) IU/L Alkaline Phosphatase (46-116) U/L Troponin I (0.000-0.056) ng/mL B-Natriuretic Peptide 18 (<100) PG/ML Total Protein (6.4-8.2) g/dL Albumin (3.4-5.0) g/dL Globulin (2.0-3.5) g/dL Albumin/Globulin Ratio (1.3-2.8) Amylase (25-115) U/L Lipase (73-393) U/L Urine Color YELLOW Urine Appearance CLEAR Urine pH 6.0 (5.0-8.0) Ur Specific [place] 1.015 (1.001-1.035) Urine Protein NEGATIVE (NEGATIVE) mg/dL Urine Glucose (UA) 250 H (NEGATIVE) mg/dL Urine Ketones NEGATIVE (NEGATIVE) mg/dL Urine Occult Blood NEGATIVE (NEGATIVE) Urine Nitrite NEGATIVE (NEGATIVE) Urine Bilirubin NEGATIVE (NEGATIVE) Urine Urobilinogen 0.2 (<2.0) EU/dL Ur Leukocyte Esterase NEGATIVE (NEGATIVE) Urine RBC 0-1 (0-2/HPF) Urine WBC 0-1 (0-5/HPF) Ur Epithelial Cells MODERATE (NONE-FEW) Urine Bacteria RARE (NEGATIVE) H. pylori IgG Antibody NEGATIVE (NEG) 12/01/17 12/01/17 12/02/17 Range/Units 21:01 22:44 06:05 WBC 9.62 (4.0-11.0) K/uL RBC 5.14 (4.50-5.90) M/uL Hgb 14.6 (13.0-17.0) g/dL Hct 42.2 (38.0-50.0) % MCV 82.1 (80.0-98.0) fL MCH 28.4 (27.0-32.0) pg MCHC 34.6 (31.0-37.0) g/dL RDW Std Deviation 38.5 (28.0-62.0) fl RDW Coeff of Garry 13 (11.0-15.0) % Plt Count 155 (150-400) K/uL MPV 11.20 (7.40-12.00) fL Neut % (Auto) 80.5 H (48.0-80.0) % Lymph % (Auto) 11.5 L (16.0-40.0) % [place] % (Auto) 7.4 (0.0-15.0) % Eos % (Auto) 0.5 (0.0-7.0) % Baso % (Auto) 0.1 (0.0-1.5) % Neut # (Auto) 7.7 H (1.4-5.7) K/uL Lymph # (Auto) 1.1 (0.6-2.4) K/uL [place] # (Auto) 0.7 (0.0-0.8) K/uL Eos # (Auto) 0.1 (0.0-0.7) K/uL Baso # (Auto) 0.0 (0.0-0.1) K/uL Nucleated RBC % /100WBC Nucleated RBCs # K/uL INR Sodium (136-148) mmol/L Potassium (3.5-5.1) mmol/L Chloride (98-107) mmol/L Carbon Dioxide (21.0-32.0) mmol/L BUN (7.0-18.0) mg/dL Creatinine (0.8-1.3) mg/dL Est Cr Clr Drug Dosing mL/min Estimated GFR (MDRD) ml/min Glucose (74-106) mg/dL POC Glucose 119 H 139 H (60-110) mg/dL Calcium (8.5-10.1) mg/dL Total Bilirubin (0.2-1.0) mg/dL AST (15-37) IU/L ALT (14-63) IU/L Alkaline Phosphatase (46-116) U/L Troponin I (0.000-0.056) ng/mL B-Natriuretic Peptide (<100) PG/ML Total Protein (6.4-8.2) g/dL Albumin (3.4-5.0) g/dL Globulin (2.0-3.5) g/dL Albumin/Globulin Ratio (1.3-2.8) Amylase (25-115) U/L Lipase (73-393) U/L Urine Color Urine Appearance Urine pH (5.0-8.0) Ur Specific [place] (1.001-1.035) Urine Protein (NEGATIVE) mg/dL Urine Glucose (UA) (NEGATIVE) mg/dL Urine Ketones (NEGATIVE) mg/dL Urine Occult Blood (NEGATIVE) Urine Nitrite (NEGATIVE) Urine Bilirubin (NEGATIVE) Urine Urobilinogen (<2.0) EU/dL Ur Leukocyte Esterase (NEGATIVE) Urine RBC (0-2/HPF) Urine WBC (0-5/HPF) Ur Epithelial Cells (NONE-FEW) Urine Bacteria (NEGATIVE) H. pylori IgG Antibody (NEG) 12/02/17 12/02/17 Range/Units 06:05 06:08 WBC (4.0-11.0) K/uL RBC (4.50-5.90) M/uL Hgb (13.0-17.0) g/dL Hct (38.0-50.0) % MCV (80.0-98.0) fL MCH (27.0-32.0) pg MCHC (31.0-37.0) g/dL RDW Std Deviation (28.0-62.0) fl RDW Coeff of Garry (11.0-15.0) % Plt Count (150-400) K/uL MPV (7.40-12.00) fL Neut % (Auto) (48.0-80.0) % Lymph % (Auto) (16.0-40.0) % [place] % (Auto) (0.0-15.0) % Eos % (Auto) (0.0-7.0) % Baso % (Auto) (0.0-1.5) % Neut # (Auto) (1.4-5.7) K/uL Lymph # (Auto) (0.6-2.4) K/uL [place] # (Auto) (0.0-0.8) K/uL Eos # (Auto) (0.0-0.7) K/uL Baso # (Auto) (0.0-0.1) K/uL Nucleated RBC % /100WBC Nucleated RBCs # K/uL INR Sodium 138 (136-148) mmol/L Potassium 4.0 (3.5-5.1) mmol/L Chloride 104 (98-107) mmol/L Carbon Dioxide 28.4 (21.0-32.0) mmol/L BUN 11 (7.0-18.0) mg/dL Creatinine 0.9 (0.8-1.3) mg/dL Est Cr Clr Drug Dosing 126.85 mL/min Estimated GFR (MDRD) > 60.0 ml/min Glucose 151 H (74-106) mg/dL POC Glucose 135 H (60-110) mg/dL Calcium 8.3 L (8.5-10.1) mg/dL Total Bilirubin (0.2-1.0) mg/dL AST (15-37) IU/L ALT (14-63) IU/L Alkaline Phosphatase (46-116) U/L Troponin I (0.000-0.056) ng/mL B-Natriuretic Peptide (<100) PG/ML Total Protein (6.4-8.2) g/dL Albumin (3.4-5.0) g/dL Globulin (2.0-3.5) g/dL Albumin/Globulin Ratio (1.3-2.8) Amylase (25-115) U/L Lipase (73-393) U/L Urine Color Urine Appearance Urine pH (5.0-8.0) Ur Specific [place] (1.001-1.035) Urine Protein (NEGATIVE) mg/dL Urine Glucose (UA) (NEGATIVE) mg/dL Urine Ketones (NEGATIVE) mg/dL Urine Occult Blood (NEGATIVE) Urine Nitrite (NEGATIVE) Urine Bilirubin (NEGATIVE) Urine Urobilinogen (<2.0) EU/dL Ur Leukocyte Esterase (NEGATIVE) Urine RBC (0-2/HPF) Urine WBC (0-5/HPF) Ur Epithelial Cells (NONE-FEW) Urine Bacteria (NEGATIVE) H. pylori IgG Antibody (NEG) Med Orders - Current: Current Medications Acetaminophen (Tylenol) 325 mg PO Q4H PRN PRN Reason: Fever Greater Than 101 Hydrocodone Bitart/Acetaminophen ([place] 325-5 Mg) 1 - 2 tab PO Q4H PRN PRN Reason: Pain (moderate 4-6) Last Admin: 12/02/17 06:28 Dose: 1 tab Fentanyl (Sublimaze) 50 mcg IVPUSH .Q5MIN PRN PRN Reason: Pain Lactated Ringer's (Ringers, Lactated) 1,000 mls @ 150 mls/hr IV ASDIRECTED [facility] Last Admin: 12/01/17 18:20 Dose: 150 mls/hr Cefoxitin Sodium 1 gm/ Premix 50 mls @ 100 mls/hr IV Q6H [facility] Stop: 12/03/17 18:30 Last Admin: 12/02/17 05:49 Dose: 100 mls/hr Lisinopril (Prinivil) 20 mg PO DAILY [facility] Last Admin: 12/02/17 09:30 Dose: Not Given Morphine Sulfate (Morphine) 1 - 5 mg IVPUSH ASDIRECTED PRN PRN Reason: Pain (severe 7-10) Ondansetron HCl (Zofran) 4 mg IVPUSH Q6H PRN PRN Reason: Nausea/Vomiting Sodium Chloride (Saline Flush) 10 ml FLUSH ASDIRECTED PRN PRN Reason: Keep Vein Open Last Admin: 12/01/17 16:20 Dose: 10 ml Sodium Chloride (Saline Flush) 2.5 ml FLUSH ASDIRECTED PRN PRN Reason: Keep Vein Open Last Admin: 12/01/17 16:20 Dose: 2.5 ml Discontinued Medications Bupivacaine HCl (Sensorcaine-Mpf 0.5%) Confirm Administered Dose 20 ml .ROUTE .STK-MED ONE Stop: 12/01/17 18:18 Cefazolin Sodium (Ancef) Confirm Administered Dose 1 gm .ROUTE .STK-MED ONE Stop: 12/01/17 18:18 Fentanyl (Sublimaze) Confirm Administered Dose 250 mcg .ROUTE .STK-MED ONE Stop: 12/01/17 18:41 Glycopyrrolate (Robinul) Confirm Administered Dose 0.4 mg .ROUTE .STK-MED ONE Stop: 12/01/17 20:19 Hydromorphone HCl (Dilaudid) Confirm Administered Dose 2 mg .ROUTE .STK-MED ONE Stop: 12/01/17 19:36 Cefoxitin Sodium 2 gm/ Premix 50 mls @ 100 mls/hr IV ONETIME ONE Stop: 12/01/17 18:40 Last Admin: 12/01/17 18:21 Dose: 100 mls/hr Acetaminophen (Ofirmev) Confirm Administered Dose 100 mls @ as directed IV .STK- MED ONE Stop: 12/01/17 18:45 Lactated Ringer's (Ringers, Lactated) 1,000 mls @ 150 mls/hr IV ASDIRECTED [facility] Last Admin: 12/02/17 06:58 Dose: 150 mls/hr Iopamidol (Isovue Multipack-370 (76%)) 100 ml IVPUSH ONETIME STA Stop: 12/01/17 17:47 Last Admin: 12/01/17 17:47 Dose: 100 ml Ketorolac Tromethamine (Toradol) Confirm Administered Dose 30 mg .ROUTE .STK- MED ONE Stop: 12/01/17 20:17 Lidocaine (Xylocaine-Mpf 2%) Confirm Administered Dose 5 ml .ROUTE .STK-MED ONE Stop: 12/01/17 18:40 Metformin HCl (Glucophage) 850 mg PO BIDMEALS [facility] Last Admin: 12/02/17 09:31 Dose: 850 mg Midazolam HCl (Versed 1 Mg/Ml) Confirm Administered Dose 2 mg .ROUTE .STK-MED ONE Stop: 12/01/17 18:41 Morphine Sulfate (Morphine) 2 mg IVPUSH ONETIME ONE Stop: 12/01/17 16:10 Last Admin: 12/01/17 16:21 Dose: 2 mg Neostigmine Methylsulfate (Neostigmine) Confirm Administered Dose 5 mg .ROUTE .STK-MED ONE Stop: 12/01/17 20:19 Ondansetron HCl (Zofran) 4 mg IVPUSH ONETIME ONE Stop: 12/01/17 16:10 Last Admin: 12/01/17 16:19 Dose: 4 mg Ondansetron HCl (Zofran) Confirm Administered Dose 4 mg .ROUTE .STK-MED ONE Stop: 12/01/17 18:40 Propofol (Diprivan 20 Ml) Confirm Administered Dose 200 mg .ROUTE .STK-MED ONE Stop: 12/01/17 18:41 Rocuronium [place] (Zemuron) Confirm Administered Dose 100 mg .ROUTE .STK-MED ONE Stop: 12/01/17 18:40 - Exam Wound/Incisions: Dressing Dry and Intact General: Alert, Oriented, Cooperative, No Acute Distress HEENT: Pupils Equal, Pupils Reactive. No: Scleral Icterus Neck: Supple Lungs: Clear to Auscultation, Normal Respiratory Effort. No: Crackles, Rales, Rhonchi Cardiovascular: Regular Rate, Regular Rhythm. No: Tachycardia GI/Abdominal Exam: Normal Bowel Sounds, Soft, Non-Tender, No Distention. No: Guarding, Rigid, Rebound Extremities: Normal Inspection Skin: Warm, Dry, Intact Neurological: No New Focal Deficit - Problem List & Annotations (1) Acute abdominal pain in right lower quadrant SNOMED Code(s): 385594411, 744835785 Code(s): R10.31 - RIGHT LOWER QUADRANT PAIN Status: Acute Priority: High Current Visit: Yes (2) Obesity (BMI 30-39.9) SNOMED Code(s): 179753736, 559448431 Code(s): E66.9 - OBESITY, UNSPECIFIED Status: Acute Priority: Medium Current Visit: Yes (3) Diabetes mellitus SNOMED Code(s): 45307374 Code(s): E11.9 - TYPE 2 DIABETES MELLITUS WITHOUT COMPLICATIONS Status: Acute Priority: Medium Current Visit: Yes Qualifiers: Diabetes mellitus type: type 2 (4) Appendicitis SNOMED Code(s): 51363722 Code(s): K37 - UNSPECIFIED APPENDICITIS Status: Acute Priority: High Current Visit: Yes Qualifiers: Appendicitis type: acute appendicitis Acute appendicitis type: unspecified acute appendicitis type Qualified Code(s): K35.80 - Unspecified acute appendicitis - Problem List Review Problem List Initiated/Reviewed/Updated: Yes - My Orders Last 24 Hours: Active Orders 24 hr Category Date Time Status Admission Status [Patient Status] [ADT] Routine ADT 12/01/17 20:47 Active Blood Glucose Check, Bedside [RC] QIDACANDBED Care 12/01/17 20:48 Active Communication Order [RC] ROUTINE Care 12/02/17 10:47 Active Oxygen Therapy [RC] PRN Care 12/01/17 20:46 Active Pulse Oximetry [RC] INTERMITTENT Care 12/01/17 20:46 Active RT Incentive Spirometry [RC] Q1HWA Care 12/01/17 20:46 Active Up ad Argelia [RC] ASDIRECTED Care 12/01/17 20:46 Active Regular Diet [DIET] Diet 12/02/17 Lunch Active Abdomen Pelvis w Cont [CT] Stat Exams 12/01/17 15:15 Taken Chest 2V [CR] Stat Exams 12/01/17 15:15 Taken UA W/MICROSCOPIC [URIN] Stat Lab 12/01/17 16:54 Ordered Acetaminophen [Tylenol] Med 12/01/17 20:48 Active 325 mg PO Q4H PRN Acetaminophen/HYDROcodone [[place] 325-5 MG] Med 12/01/17 20:48 Active 1 - 2 tab PO Q4H PRN Lactated Ringers [Ringers, Lactated] 1,000 ml Med 12/01/17 18:15 Active IV ASDIRECTED Lisinopril [Prinivil] Med 12/02/17 09:00 Active 20 mg PO DAILY Morphine Med 12/01/17 20:48 Active 1 - 5 mg IVPUSH ASDIRECTED PRN Ondansetron [Zofran] Med 12/01/17 20:48 Active 4 mg IVPUSH Q6H PRN Sodium Chloride 0.9% [Saline Flush] Med 12/01/17 15:14 Active 10 ml FLUSH ASDIRECTED PRN Sodium Chloride 0.9% [Saline Flush] Med 12/01/17 15:14 Active 2.5 ml FLUSH ASDIRECTED PRN cefOXitin [Mefoxin in Dextrose,Iso-Osm 1 GM/50 ML] 1 gm Med 12/02/17 00:01 Active Premix Bag 1 bag IV Q6H fentaNYL [Sublimaze] Med 12/01/17 19:57 Active 50 mcg IVPUSH .Q5MIN PRN Antiembolic Hose [OM.PC] PER UNIT ROUTINE Oth 12/02/17 06:00 Ordered Saline Lock Insert [OM.PC] Stat Oth 12/01/17 15:14 Ordered Sequential Compression Device [OM.PC] Routine Oth 12/01/17 18:16 Ordered Sequential Compression Device [OM.PC] Routine Oth 12/01/17 20:47 Ordered Resuscitation Status Routine Resus Stat 12/01/17 18:16 Ordered Medication Orders Acetaminophen (Tylenol) 325 mg PO Q4H PRN PRN Reason: Fever Greater Than 101 Hydrocodone Bitart/Acetaminophen ([place] 325-5 Mg) 1 - 2 tab PO Q4H PRN PRN Reason: Pain (moderate 4-6) Last Admin: 12/02/17 06:28 Dose: 1 tab Admin: 12/02/17 05:47 Dose: 1 tab Fentanyl (Sublimaze) 50 mcg IVPUSH .Q5MIN PRN PRN Reason: Pain Lactated Ringer's (Ringers, Lactated) 1,000 mls @ 150 mls/hr IV ASDIRECTED [facility] Last Admin: 12/01/17 18:20 Dose: 150 mls/hr Cefoxitin Sodium 1 gm/ Premix 50 mls @ 100 mls/hr IV Q6H [facility] Stop: 12/03/17 18:30 Last Admin: 12/02/17 05:49 Dose: 100 mls/hr Infusion: 12/02/17 00:24 Dose: 100 mls/hr Admin: 12/01/17 23:54 Dose: 100 mls/hr Lisinopril (Prinivil) 20 mg PO DAILY [facility] Last Admin: 12/02/17 09:30 Dose: Not Given Morphine Sulfate (Morphine) 1 - 5 mg IVPUSH ASDIRECTED PRN PRN Reason: Pain (severe 7-10) Ondansetron HCl (Zofran) 4 mg IVPUSH Q6H PRN PRN Reason: Nausea/Vomiting Sodium Chloride (Saline Flush) 10 ml FLUSH ASDIRECTED PRN PRN Reason: Keep Vein Open Last Admin: 12/01/17 16:20 Dose: 10 ml Sodium Chloride (Saline Flush) 2.5 ml FLUSH ASDIRECTED PRN PRN Reason: Keep Vein Open Last Admin: 12/01/17 16:20 Dose: 2.5 ml - Assessment Assessment (Free Text/Narrative):: Patient is doing well on postoperative day one following open appendectomy for acute appendicitis with near perforation. He is hungry and would like more to eat. He denies any nausea or vomiting. States he is passing gas. - Plan Plan (Free Text/Narrative):: Advance diet. Encourage increased activity. We will heparin lock his IV after this bag is in. Given his CT scan with contrast yesterday, we'll hold the metformin today. He will continue on parenteral antibiotics.
--- NOTE | 2017-12-02 12:58 | CT ---
EXAM DATE: 12/01/17 PATIENT'S AGE: 42 Patient: LENCHO VÁZQUEZ Facility: [place], [place] Site . Site : 1975 Study: CT Abdomen/Pelvis [id number]/29/2018 4:56:09 PM Ordering Physician: Doctor Nicole Final Report: HISTORY: Right lower quadrant abdominal pain and right groin pain x4 days. Watery stools. TECHNIQUE: The abdomen and pelvis were scanned using helical technique at 3 mm after 100 cc of Isovue-370. Delayed images of the abdomen and pelvis were obtained. Sagittal and coronal reconstructions were performed. COMPARISON: 21 Nov 2014. FINDINGS: Lung bases: There are thin bands of linear atelectasis or scarring in the lung bases. Liver and gallbladder: Trace intrahepatic biliary dilatation. Prior cholecystectomy. The periphery of the right lobe of the liver has a 5.2 x 3.0 cm hypodense mass with peripheral nodular enhancement. This has increasing enhancement on the delayed exam. The lower pole has a similar 3.3 x 2.2 cm hypodense mass with peripheral enhancement. This is not apparent on the delayed exam. The inferior tip right lobe liver has a 3.8 x 2.7 cm hypodense mass with peripheral nodular enhancement which increases on delayed exam. The left lobe of the liver has a 2.4 x 2.1 cm similar enhancing mass. These most likely represent hemangiomas. Spleen, pancreas and adrenal glands: Unremarkable. Kidneys and bladder: Symmetric nephrograms. No hydronephrosis bladder is within normal limits. Retroperitoneum and nodes: The aorta is normal caliber. There is a few small periaortic lymph nodes. No pathologic esvin aortic lymphadenopathy is seen. GI tract: Stomach is decompressed. No dilated small bowel loops are seen. The appendix is dilated to 18 mm, contains an appendicolith and has extensive surrounding inflammatory change consistent with acute appendicitis. Stool and gas is seen throughout the colon. There is no free air in the abdomen. There is no free fluid or pelvic. Abdominal wall: Above the umbilicus, there are two fascial defects with fat containing ventral hernias these did not contain bowel. No inflammatory change. Osseous structures: Degenerative changes of the spine. IMPRESSION: 1. 18 mm dilated appendix with an appendicolith and extensive surrounding inflammatory change consistent acute appendicitis. No abscess or perforation. 2. There are four hypodense mass lesions within the liver parenchyma with peripheral nodular enhancement which fills in on delayed exam most consistent with hemangiomas. 3. Status post cholecystectomy with trace intrahepatic biliary dilatation. 4. Two fat containing ventral hernias above the umbilicus without bowel or inflammatory change. Dictated by Apryl Stewart MD @ 12/01/2017 5:47:59 PM Please note that all CT scans at this facility use dose modulation, iterative reconstruction, and/or weight-based dosing when appropriate to reduce radiation dose to as low as reasonably achievable. Dictated by: Apryl Stewart MD @ 12/01/2017 17:48:27 (Electronic Signature) Report Signed by Proxy. MTDD
--- NOTE | 2017-12-02 12:59 | CR ---
EXAM DATE: 12/01/17 PATIENT'S AGE: 42 Patient: LENCHO VÁZQUEZ Facility: [place], [place] Site . Site : 1975 Study: XRay Chest [id number]/29/2018 5:03:10 PM Ordering Physician: Doctor Nicole Final Report: INDICATION: Pain/Shortness of breath. CHEST, PA AND LATERAL Upright PA and lateral radiographs of the chest were performed. Comparison: No previous studies are currently available for comparison. The lungs appear clear and there are no pleural effusions. Heart size and pulmonary vasculature appear normal. Visualized bones show no significant findings. IMPRESSION: No acute intrathoracic abnormality identified. SALAS MURPHY MD [employer] Dictated by: Héctor Murphy MD @ 12/01/2017 17:56:57 (Electronic Signature) Report Signed by Proxy. [facility]
[2017-12-02] MEDS: Morphine 10 MG/ML Syringe IVPUSH PRN ×2 (14:01→19:57)
--- NOTE | 2017-12-02 15:06 | PCM48HPAN ---
Post Anesthesia Note - EVALUATION WITHIN 48HRS OF ANESTHETIC Vital Signs in Normal Range: Yes Patient Participated in Evaluation: Yes Respiratory Function Stable: Yes Airway Patent: Yes Cardiovascular Function Stable: Yes Hydration Status Stable: Yes Pain Control Satisfactory: Yes Nausea and Vomiting Control Satisfactory: Yes Mental Status Recovered: Yes Resp Rate: 16 Blood Pressure: 116/59
[2017-12-03] MEDS: Insulin Aspart 100 Units/ML 3 ML Pen SUBCUT SCH ×2 (00:15→07:39)
[2017-12-03] MEDS: Acetaminophen/HYDROcodone 325-5 MG Tab PO PRN ×2 (04:06→08:38)
[2017-12-03 05:37] LABS: CHLORIDE,CL 102 mmol/L (98-107); SODIUM,NA 137 mmol/L (136-148)
[2017-12-03] MEDS: cefOXitin 1 GM in Premix Bag 1 BAG IV SCH (06:19)
[2017-12-03 08:10] VITALS: BP 126/65
[2017-12-03] MEDS: Lisinopril 10 MG Tab PO SCH (08:10)
--- NOTE | 2017-12-03 08:54 | PCM.DCSUM1 ---
Discharge Summary - Hospital Course Free Text/Narrative:: Patient is a 42-year-old gentleman who presented to the hospital on the with an acute abdomen. CT scan suggested an acute appendicitis. He was taken to the operating room where under general endotracheal anesthesia, he underwent open appendectomy. The findings at the time of surgery were that of an acute appendicitis without perforation or abscess. He has convalesced well. He is now tolerating a regular diet. His incision is healing well. There is no erythema or induration. He is now ready for discharge. HPI Initial Comments: Patient is a 42-year-old gentleman who was admitted to the hospital the with an acute abdomen. He was found have an acute appendicitis. He was taken to the operating room that evening where under general endotracheal anesthesia and underwent open appendectomy. He had been ill for 4 days prior to presenting to the hospital. - Discharge Data Discharge Date: 12/03/17 Discharge Disposition: Home, Self-Care 01 Condition: Good - Discharge Diagnosis/Problem(s) (1) Acute abdominal pain in right lower quadrant SNOMED Code(s): 675105542, 770820690 ICD Code: R10.31 - RIGHT LOWER QUADRANT PAIN Status: Acute Priority: High Current Visit: Yes (2) Obesity (BMI 30-39.9) SNOMED Code(s): 119102610, 758261983 ICD Code: E66.9 - OBESITY, UNSPECIFIED Status: Acute Priority: Medium Current Visit: Yes (3) Diabetes mellitus SNOMED Code(s): 66145241 ICD Code: E11.9 - TYPE 2 DIABETES MELLITUS WITHOUT COMPLICATIONS Status: Acute Priority: Medium Current Visit: Yes Qualifiers: Diabetes mellitus type: type 2 (4) Appendicitis SNOMED Code(s): 31203466 ICD Code: K37 - UNSPECIFIED APPENDICITIS Status: Acute Priority: High Current Visit: Yes Qualifiers: Appendicitis type: acute appendicitis Acute appendicitis type: unspecified acute appendicitis type Qualified Code(s): K35.80 - Unspecified acute appendicitis - Patient Summary/Data Operative Procedure(s) Performed: Open appendectomy - Patient Instructions Diet: Usual Diet as Tolerated Activity: No Lifting Over 25 Pounds (for 6 weeks) Activity, Other: May return to light duty on 12/07. May need limited work hours the first wee Driving: Do Not Drive (for 48 hours) Showering/Bathing: May Shower Wound/Incision Care: Keep Operative Site/Wound Site Clean and Dry Notify Provider of: Fever, Increased Pain, Swelling and Redness, Drainage Other/Special Instructions: Send Rx. See Dr. Alonso on 12/10/17 for postop care. - Discharge Plan Home Medications: Home Meds Ergocalciferol (Vitamin D2) [Vitamin D2] 1 tab PO WEEKLY 12/01/17 [History] Lisinopril 20 mg PO DAILY 12/01/17 [History] metFORMIN HCl [Metformin HCl] 1 tab PO BID 12/01/17 [History] Patient Handouts: Acetaminophen; Hydrocodone tablets or capsules, Open Appendectomy, Care After, Ciprofloxacin tablets Referrals: Gregorio Alonso MD [Physician] - 12/10/17 9:00 am - General Info Date of Service: 12/03/17 Functional Status: Reports: Pain Controlled, Tolerating Diet, Ambulating, Urinating. Denies: New Symptoms - Review of Systems General: Denies: Fever, Weakness, Chills HEENT: Reports: No Symptoms Pulmonary: Denies: Shortness of Breath, Pleuritic Chest Pain, Cough Cardiovascular: Denies: Chest Pain Gastrointestinal: Reports: Abdominal Pain (incisional only), Flatus. Denies: Constipation, Decreased Appetite, Diarrhea, Difficulty Swallowing, Hematochezia , Melena, Nausea, Vomiting Genitourinary: Denies: Dysuria, Frequency, Burning Musculoskeletal: Reports: No Symptoms Skin: Denies: Cyanosis, Jaundice Neurological: Reports: No Symptoms Psychiatric: Reports: No Symptoms - Patient Data Vitals - Most Recent: Last Vital Signs Temp 98.8 F 12/03/17 06:00 Pulse 70 12/03/17 06:00 Resp 20 12/03/17 06:00 BP 126/65 12/03/17 08:10 Pulse Ox 97 12/03/17 06:00 Weight - Most Recent: 280 lb I&O - Last 24 hours: Intake & Output 12/02/17 12/03/17 12/03/17 19:59 03:59 11:59 Intake Total 1914 50 750 Output Total 1325 1330 Balance 589 50 -580 Lab Results - Last 24 hrs: Laboratory Results - last 24 hr 12/02/17 12/02/17 12/02/17 Range/Units 11:28 16:03 22:12 Sodium (136-148) mmol/L Potassium (3.5-5.1) mmol/L Chloride (98-107) mmol/L Carbon Dioxide (21.0-32.0) mmol/L BUN (7.0-18.0) mg/dL Creatinine (0.8-1.3) mg/dL Est Cr Clr Drug Dosing mL/min Estimated GFR (MDRD) ml/min Glucose (74-106) mg/dL POC Glucose 146 H 184 H 349 H (60-110) mg/dL Calcium (8.5-10.1) mg/dL 12/02/17 12/03/17 12/03/17 Range/Units 23:28 05:00 06:23 Sodium 137 (136-148) mmol/L Potassium 3.7 (3.5-5.1) mmol/L Chloride 102 (98-107) mmol/L Carbon Dioxide 27.8 (21.0-32.0) mmol/L BUN 9 (7.0-18.0) mg/dL Creatinine 0.9 (0.8-1.3) mg/dL Est Cr Clr Drug Dosing 126.85 mL/min Estimated GFR (MDRD) > 60.0 ml/min Glucose 136 H (74-106) mg/dL POC Glucose 128 H 139 H (60-110) mg/dL Calcium 8.4 L (8.5-10.1) mg/dL Med Orders - Current: Current Medications Acetaminophen (Tylenol) 325 mg PO Q4H PRN PRN Reason: Fever Greater Than 101 Hydrocodone Bitart/Acetaminophen ([place] 325-5 Mg) 1 - 2 tab PO Q4H PRN PRN Reason: Pain (moderate 4-6) Last Admin: 12/03/17 08:38 Dose: 2 tab Fentanyl (Sublimaze) 50 mcg IVPUSH .Q5MIN PRN PRN Reason: Pain Lactated Ringer's (Ringers, Lactated) 1,000 mls @ 150 mls/hr IV ASDIRECTED [facility] Last Admin: 12/01/17 18:20 Dose: 150 mls/hr Cefoxitin Sodium 1 gm/ Premix 50 mls @ 100 mls/hr IV Q6H [facility] Stop: 12/03/17 18:30 Last Admin: 12/03/17 06:19 Dose: 100 mls/hr Insulin Aspart (Novolog) 0 unit SUBCUT ACBED [facility]; Protocol Last Admin: 12/03/17 07:39 Dose: Not Given Lisinopril (Prinivil) 20 mg PO DAILY [facility] Last Admin: 12/03/17 08:10 Dose: 20 mg Metformin HCl (Glucophage) 850 mg PO BIDMEALS [facility] Last Admin: 12/03/17 08:09 Dose: 850 mg Morphine Sulfate (Morphine) 1 - 5 mg IVPUSH ASDIRECTED PRN PRN Reason: Pain (severe 7-10) Last Admin: 12/02/17 19:57 Dose: 3 mg Ondansetron HCl (Zofran) 4 mg IVPUSH Q6H PRN PRN Reason: Nausea/Vomiting Sodium Chloride (Saline Flush) 10 ml FLUSH ASDIRECTED PRN PRN Reason: Keep Vein Open Last Admin: 12/01/17 16:20 Dose: 10 ml Sodium Chloride (Saline Flush) 2.5 ml FLUSH ASDIRECTED PRN PRN Reason: Keep Vein Open Last Admin: 12/01/17 16:20 Dose: 2.5 ml Discontinued Medications Bupivacaine HCl (Sensorcaine-Mpf 0.5%) Confirm Administered Dose 20 ml .ROUTE .STK-MED ONE Stop: 12/01/17 18:18 Cefazolin Sodium (Ancef) Confirm Administered Dose 1 gm .ROUTE .STK-MED ONE Stop: 12/01/17 18:18 Fentanyl (Sublimaze) Confirm Administered Dose 250 mcg .ROUTE .STK-MED ONE Stop: 12/01/17 18:41 Glycopyrrolate (Robinul) Confirm Administered Dose 0.4 mg .ROUTE .STK-MED ONE Stop: 12/01/17 20:19 Hydromorphone HCl (Dilaudid) Confirm Administered Dose 2 mg .ROUTE .STK-MED ONE Stop: 12/01/17 19:36 Cefoxitin Sodium 2 gm/ Premix 50 mls @ 100 mls/hr IV ONETIME ONE Stop: 12/01/17 18:40 Last Admin: 12/01/17 18:21 Dose: 100 mls/hr Acetaminophen (Ofirmev) Confirm Administered Dose 100 mls @ as directed IV .STK- MED ONE Stop: 12/01/17 18:45 Lactated Ringer's (Ringers, Lactated) 1,000 mls @ 150 mls/hr IV ASDIRECTED [facility] Last Admin: 12/02/17 06:58 Dose: 150 mls/hr Iopamidol (Isovue Multipack-370 (76%)) 100 ml IVPUSH ONETIME STA Stop: 12/01/17 17:47 Last Admin: 12/01/17 17:47 Dose: 100 ml Ketorolac Tromethamine (Toradol) Confirm Administered Dose 30 mg .ROUTE .STK- MED ONE Stop: 12/01/17 20:17 Lidocaine (Xylocaine-Mpf 2%) Confirm Administered Dose 5 ml .ROUTE .STK-MED ONE Stop: 12/01/17 18:40 Metformin HCl (Glucophage) 850 mg PO BIDMEALS [facility] Last Admin: 12/02/17 09:31 Dose: 850 mg Midazolam HCl (Versed 1 Mg/Ml) Confirm Administered Dose 2 mg .ROUTE .STK-MED ONE Stop: 12/01/17 18:41 Morphine Sulfate (Morphine) 2 mg IVPUSH ONETIME ONE Stop: 12/01/17 16:10 Last Admin: 12/01/17 16:21 Dose: 2 mg Neostigmine Methylsulfate (Neostigmine) Confirm Administered Dose 5 mg .ROUTE .STK-MED ONE Stop: 12/01/17 20:19 Ondansetron HCl (Zofran) 4 mg IVPUSH ONETIME ONE Stop: 12/01/17 16:10 Last Admin: 12/01/17 16:19 Dose: 4 mg Ondansetron HCl (Zofran) Confirm Administered Dose 4 mg .ROUTE .STK-MED ONE Stop: 12/01/17 18:40 Propofol (Diprivan 20 Ml) Confirm Administered Dose 200 mg .ROUTE .STK-MED ONE Stop: 12/01/17 18:41 Rocuronium [place] (Zemuron) Confirm Administered Dose 100 mg .ROUTE .STK-MED ONE Stop: 12/01/17 18:40 - Exam General: Reports: Alert, Oriented, Cooperative, No Acute Distress HEENT: Reports: Pupils Equal, Pupils Reactive. Denies: Scleral Icterus Neck: Reports: Supple Lungs: Reports: Clear to Auscultation, Normal Respiratory Effort Cardiovascular: Reports: Regular Rate, Regular Rhythm. Denies: Tachycardia GI/Abdominal Exam: Normal Bowel Sounds, Soft, Non-Tender, No Distention, No Mass. No: Guarding, Rigid, Rebound (Male) Exam: No Hernia Rectal (Males) Exam: Deferred Back Exam: Reports: Normal Inspection, Full Range of Motion Extremities: Normal Inspection, Normal Range of Motion, Non-Tender, No Pedal Edema Skin: Reports: Warm, Dry, Intact Wound/Incisions: Reports: Healing Well. Denies: No Drainage, Erythema Neurological: Reports: No New Focal Deficit Psy/Mental Status: Reports: Alert, Normal Affect, Normal Mood Discharge Operative/Procedures - Procedures Performed Operations/Procedure Comment: Open appendectomy
== END 2017-12-03 09:10 | disposition home or self-care (01) | DRG 343 ==
LOC: MW.ED 14:30 → MW.SDS 18:17 → MW.ED 19:03 → MW.MS 20:47 → MW.SDS 20:47 → MW.MS 22:54
PROVIDERS: ADMIT Surgery; ATTEND Surgery
PROC: 0DTJ0ZZ Resection of Appendix, Open Approach (ICD-10-PCS; principal; 2017-12-01)
DX: K35.80 Unspecified acute appendicitis (principal); E66.9 Obesity, unspecified; Z68.35 Body mass index [BMI] 35.0-35.9, adult; E11.9 Type 2 diabetes mellitus without complications; I10 Essential (primary) hypertension; F17.200 Nicotine dependence, unspecified, uncomplicated; Z79.899 Other long term (current) drug therapy
CPT/HCPCS: 00840; 36415; 71046; 71046-26; 74177; 74177-26; 80048; 80053; 81001; 82150; 82962; 83690; 83880; 84484; 85025; 85610; 86677; 88304; 93005; 96365; 96375; 99283; 99285-25; A9270-GY; J0690; J0694; J1170; J1815-GY; J1885; J2250; J2270; J2405; J2704; J3010; J7120; Q9967

== ENCOUNTER 2020-11-17 16:50 | Emergency (ER) | payer OTHER ==
[2020-11-17] MEDS ORDERED: Tetracaine HCl/PF 0.5% 4 ML Bottle EYEBOTH ONE (17:45)
--- NOTE | 2020-11-17 18:39 | EDM.PDOC ---
ED HPI GENERAL MEDICAL PROBLEM - General Chief Complaint: ENT Problem Stated Complaint: POSSIBLE METAL IN THE EYE Time Seen by Provider: 11/17/20 17:25 Source of Information: Reports: Patient History Limitations: Reports: No Limitations - History of Present Illness INITIAL COMMENTS - FREE TEXT/NARRATIVE: HISTORY AND PHYSICAL: History of present illness: Patient is a 45-year-old male who presents to the ED today with concern of getting possible metal to his left eye. 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 Patient states that a few hours after he was done with that, he had brush his hair and thought he got metal in his left eye. Patient denies any visual changes but states that the eye has felt more irritated. Patient states that he had tried to wash it off and states that he can see a little dab on his eye. Patient states that he cannot remove it due to the discomfort. Patient states that he does not wear contacts. Patient denies any other associated symptoms. Patient denies fever, chills, chest pain, shortness of breath, or cough. Denies headache, neck stiff ness, change in vision, syncope, or near syncope. Denies nausea, vomiting, abdominal pain, diarrhea, constipation, or dysuria. Has not noted any blood in urine or stool. Patient has been eating and drinking appropriately. Review of systems: As per history of present illness and below otherwise all systems reviewed and negative. Past medical history: As per history of present illness and as reviewed below otherwise noncontributory. Surgical history: As per history of present illness and as reviewed below otherwise noncontributory. Social history: See social history for further information Family history: As per history of present illness and as reviewed below otherwise noncontributory. Physical exam: General: Patient is alert, oriented, and in no acute distress. Patient sitting comfortably on exam table. Vitals stable and reviewed by me. HEENT: Visual acuity intact. Mild scleral injection noted of the left eye. EOMS intact without pain or difficulty. There is a pinpoint foreign body noted to the left eye at the 9 o clock position of the retina. Fluroscene stain performed without evidence of corneal ulceration; small abrasion noted to area of foreign body. Bilateral upper and lower lids everted without sign of foreign body. Negative for corneal opacity, hyphema, or hypopyon. Otherwise, Atraumatic, normocephalic, pupils equal and reactive bilaterally, negative for conjunctival pallor or scleral icterus, mucous membranes moist, TMs normal bilaterally, throat clear, neck supple, nontender, trachea midline. No drooling or trismus noted. No meningeal signs. No hot potato voice noted. Lungs: Clear to auscultation, breath sounds equal bilaterally, chest nontender. Heart: S1S2, regular rate and rhythm without overt murmur Abdomen: Soft, nondistended, nontender. Negative for masses or hepatosplenomegaly. Negative for costovertebral tenderness. Pelvis: Stable nontender. Genitourinary: Deferred. Rectal: Deferred. Skin: Intact, warm, dry. No lesions or rashes noted. Extremities: Atraumatic, negative for cords or calf pain. Neurovascular unremarkable. Neuro: Awake, alert, oriented. Cranial nerves II through XII unremarkable. Cerebellum unremarkable. Motor and sensory unremarkable throughout. Exam nonfocal. Notes: Signs and symptoms that were prompt return to the ED thoroughly discussed with patient. Voices understanding and is agreeable to plan of care. Denies any further questions or concerns at this time. Diagnostics: Fluorescein Wood's lamp Therapeutics: Tetracaine ophthalmic, eye foreign body removal (see procedure note below) Prescription: Erythromycin ophthalmic Impression: Eye foreign body, left Plan: 1. Apply medication to affected eye as prescribed. You can also alternate ibuprofen and Tylenol as directed for pain and discomfort. Do not rub your eye as discussed. 2. Follow-up with the tower air traffic control specialist or your eye provider as discussed. Call Thursday morning to establish an appointment time. The number has been provided above for you. 3. Return to the ED as needed and as discussed. Definitive disposition and diagnosis as appropriate pending reevaluation and review of above. Left Eye Pain Score (Numeric/FACES): 4 - Related Data Allergies Allergy/AdvReac Type Severity Reaction Status Date / Time No Known Allergies Allergy Verified 11/17/20 17:46 Home Meds: Home Meds Ergocalciferol (Vitamin D2) [Vitamin D2] 1 tab PO WEEKLY 12/01/17 [History] Lisinopril 20 mg PO DAILY 12/01/17 [History] metFORMIN HCl [Metformin HCl] 1 tab PO BID 12/01/17 [History] Erythromycin Base [Erythromycin 0.5% Ophth Oint] 1 applic OP Q4H 5 Days #1 tube 11/17/20 [Rx] Past Medical History - Past Health History Medical/Surgical History: Denies Medical/Surgical History Cardiovascular History: Reports: Hypertension Endocrine/Metabolic History: Reports: Diabetes, Type II - Infectious Disease History Infectious Disease History: Reports: None - Past Surgical History GI Surgical History: Reports: Cholecystectomy Social & Family History - Family History Family Medical History: No Pertinent Family History - Caffeine Use Caffeine Use: Reports: Energy Drinks, Soda - Recreational Drug Use Recreational Drug Use: No ED ROS GENERAL - Review of Systems Review Of Systems: Comprehensive ROS is negative, except as noted in HPI. ED EXAM, GENERAL - Physical Exam Exam: See Below (see dictation) Foreign Body Removal - Pre-Procedure Indication: Pinpoint foreign body noted to the cornea of the left eye Consent Obtained: Reports: Patient Performing Doctor:: Jocelyne Hammond - Post-Procedure Findings:: Pinpoint dirt-like foreign body of the left eye Complications:: No Comments:: Q-tip was used to gently wipe away foreign body with ease. Course - Vital Signs Last Recorded V/S: Last Vital Signs Temp 98 F 11/17/20 19:00 Pulse 57 L 11/17/20 19:00 Resp 16 11/17/20 17:46 BP 133/76 11/17/20 19:00 Pulse Ox 97 11/17/20 19:00 - Orders/Labs/Meds Meds: Medications Discontinued Medications Generic Name Dose Route Start Last Admin Trade Name Freq PRN Reason Stop Dose Admin Tetracaine HCl 2 ml 11/17/20 17:45 11/17/20 17:48 Tetracaine Hcl/Pf 0.5% 4 Ml Bottle EYEBOTH 11/17/20 17:46 1 applic ASDIRECTED ONE Administration Departure - Departure Time of Disposition: 18:38 Disposition: Home, Self-Care 01 Clinical Impression: Foreign body in eye Qualifiers: Encounter type: initial encounter Laterality: left Qualified Code(s): T15.92XA - Foreign body on external eye, part unspecified, left eye, initial encounter - Discharge Information Prescriptions: Erythromycin Base [Erythromycin 0.5% Ophth Oint] 1 applic OP Q4H 5 Days #1 tube Instructions: Medical Screening Exam Referrals: PCP,None [Primary Care Provider] - Forms: ED Department Discharge Additional Instructions: The following information is given to patients seen in the emergency department who are being discharged to home. This information is to outline your options for follow-up care. We provide all patients seen in our emergency department with a follow-up referral. The need for follow-up, as well as the timing and circumstances, are variable depending upon the specifics of your emergency department visit. If you don't have a primary care physician on staff, we will provide you with a referral. We always advise you to contact your personal physician following an emergency department visit to inform them of the circumstance of the visit and for follow-up with them and/or the need for any referrals to a consulting specialist. The emergency department will also refer you to a specialist when appropriate. This referral assures that you have the opportunity for follow-up care with a specialist. All of these measure are taken in an effort to provide you with optimal care, which includes your follow-up. Under all circumstances we always encourage you to contact your private physician who remains a resource for coordinating your care. When calling for follow-up care, please make the office aware that this follow-up is from your recent emergency room visit. If for any reason you are refused follow-up, please contact the [facility] Emergency Department at and asked to speak to the emergency department charge nurse. [facility], Dr. Kohler, Ophthalmology [address] [place] [address] 1. Apply medication to affected eye as prescribed. You can also alternate ibuprofen and Tylenol as directed for pain and discomfort. Do not rub your eye as discussed. 2. Follow-up with the tower air traffic control specialist or your eye provider as discussed. Call Thursday morning to establish an appointment time. The number has been provided above for you. 3. Return to the ED as needed and as discussed. Sepsis Event Note (ED) - Evaluation Sepsis Screening Result: No Definite Risk
[2020-11-17 19:01] VITALS: BP 133/76; PULSE 57
== END 2020-11-17 19:00 | disposition home or self-care (01) ==
LOC: MW.ED 16:50
DX: T15.92XA Foreign body on external eye, part unspecified, left eye, initial encounter (principal); E11.9 Type 2 diabetes mellitus without complications; I10 Essential (primary) hypertension; Z79.84 Long term (current) use of oral hypoglycemic drugs; Z79.899 Other long term (current) drug therapy; W22.8XXA Striking against or struck by other objects, initial encounter
CPT/HCPCS: 65220; 99282; 99283-25

== ENCOUNTER 2022-10-26 21:56 | Emergency (ER) | payer BC, OTHER ==
[2022-10-26] MEDS ORDERED: Diazepam 5 MG Tab PO ONE (22:30)
[2022-10-26 23:04] VITALS: PULSE 83
[2022-10-26 23:53] LABS: CARBON DIOXIDE,CO2 26.9 mmol/L (21.0-32.0); POTASSIUM,K 4.1 mmol/L (3.5-5.1)
[2022-10-27 00:03] VITALS: BP 146/80
== END 2022-10-27 00:12 | disposition home or self-care (01) ==
LOC: MW.ED 21:56
DX: R10.9 Unspecified abdominal pain (principal); E11.9 Type 2 diabetes mellitus without complications; I10 Essential (primary) hypertension; Z79.84 Long term (current) use of oral hypoglycemic drugs; Z79.899 Other long term (current) drug therapy
CPT/HCPCS: 36415; 74176; 80053; 85025; 99284; A9270